=== PATIENT | female | born 1995 | race Caucasian/White ===

== ENCOUNTER 2016-11-21 22:23 | Emergency (ER) | payer OTHER ==
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
[~2016-11-21 22:23] MED LIST: BIRTH CONTROL PILL
== END 2016-11-21 23:55 | disposition home or self-care (01) ==
LOC: SED 22:23
DX: S40.022A Contusion of left upper arm, initial encounter (principal); V49.40XA Driver injured in collision with unspecified motor vehicles in traffic accident, initial encounter
CPT/HCPCS: 73060; 99283